=== PATIENT | female | born 1940 | race Caucasian/White ===

== ENCOUNTER → 2017-06-24 | Outpatient (CLI) | payer OTHER ==
[~2017-06-24] VITALS: Ht 157.5 cm; Wt 58.1 kg
[~2017-06-24] MED LIST: CENTRUM SILVER1 EAC4 PO; FISH OIL 1,001000 M2 PO; PRESERVISION A1 EAC2 PO
--- NOTE | ~2017-06-24 | S ---
[facility] [address] [place] [facility] [place] [address] SURGICAL PATH RPT PROCEDURE Name: CARMENCITA NOVAK Room #: REG JOSIAS Estela#: [id number] Admission: 06/24/17 Date of : 44 Discharge: Report #: [id number] Path Case #: [id number] PATHOLOGY REPORT COLLECTION DATE: 06/24/2017 RECEIVED DATE: 06/24/2017 SUBMITTING PHYS: Dr. Cameron Carias OTHER PHYS: Dr. Arvind Oliveira SPECIMEN(S) RECEIVED: A.Hepatic flexure polyp B.Rectal polyp * * * * * * * * * * * * FINAL DIAGNOSIS: A. "Hepatic flexure polyp", biopsy: - Tubular adenoma; no high-grade dysplasia. B. "Rectal polyp", biopsy: - Tubular adenoma; no high-grade dysplasia. (CLW:ami; 06/26/2017) PATHOLOGIST: Sybil Ibarra M.D. REPORT ELECTRONICALLY SIGNED BY: Sybil Ibarra M.D. DATE/TIME: 06/26/2017 15:11 * * * * * * * * * * * * GROSS PATHOLOGY: A. Received in formalin labeled "Carmencita Novak, polyp at hepatic flexure," is a segment of parker soft tissue measuring 0.6 x 0.2 x 0.2 cm in maximum dimension. The specimen is submitted entirely in cassette A1. B. Received in formalin labeled "Carmencita Novak Y, polyp at rectum," is a segment of parker soft tissue measuring 0.4 x 0.3 x 0.3 cm in maximum dimension. The specimen is submitted entirely in cassette B1. (MIRZA; 06/25/2017) CLINICAL HISTORY: Colon cancer screening, colon polyps INITIAL CPT CODE(S): A; 51954 B; 79753 Professional services performed by [facility] at [address] [address] SURGICAL PATH RPT PROCEDURE Name: CARMENCITA NOVAK Room #: REG CL Bowen#: [id number] Admission: 06/24/17 Date of : 44 Discharge: Report #: [id number] Path Case #: [id number] [address] [facility] , [place] [address] Technical services performed by [facility] at [address] [place] [address], [facility] [address] [address]. [place] [address] PHONE: [phone] DIRECTOR: Yunior Otero M.D. * * * END OF REPORT * * *
--- NOTE | ~2017-06-24 | P ---
[facility] [place] [address] PROCEDURE REPORT Name: CHEY NASH Room #: REG [facility]#: [id number] Admission: 06/24/17 Attend Phys: Cameron Carias MD Discharge: Date of : 44 Report #: [id number] THIS REPORT FOR: //name// CC: Arvind Carias DATE OF SERVICE: 06/24/2017 DATE OF SERVICE: 06/24/2017 BRIEF HISTORY: The patient is a 76-year-old woman for average risk screening colonoscopy. PREOPERATIVE DIAGNOSIS: Average risk screening colonoscopy. POSTOPERATIVE DIAGNOSES: Colon polyps. MEDICATIONS: Deep sedation with propofol per anesthesia. SPECIMEN: 1. Diminutive hepatic flexure polyp. 2. A 5-mm rectal polyp. ESTIMATED BLOOD LOSS: 3 mL. PROCEDURE: Colonoscopy to cecum and terminal ileum with snare polypectomy and biopsy. FINDINGS: Prior to propofol sedation, procedure of colonoscopy discussed with the patient as well as potential risks and its complications. She indicates she understands and desires to proceed. DESCRIPTION OF PROCEDURE: With the patient in the left lateral decubitus position, digital examination was completed which revealed no abnormalities. Subsequently, the [employer] video colonoscope was introduced into the rectum and advanced under direct vision to the cecum, done with minimal difficulty. The cecum was identified by the ileocecal valve and the appendiceal orifice. I was able to visualize the distal segment of the terminal ileum, which was inspected and noted to be unremarkable. At that point, the scope was slowly withdrawn and careful circumferential views obtained including retroflexing the scope in the ascending colon. As we withdrew the scope, the prep was noted to be excellent. The mucosa was within normal limits, normal vascular pattern, normal light reflex. No abnormalities were noted until the hepatic flexure was reached and a diminutive polyp was seen and removed with biopsy forceps. Scope was further withdrawn and no additional abnormalities were noted until the rectum was [facility] [address] [place] [address] PROCEDURE REPORT Name: CHEY NASH Room #: [facility]#: [id number] Admission: 06/24/17 Attend Phys: Cameron Carias MD Discharge: Date of : 44 Report #: [id number] reached. The remainder of the colonic mucosa was normal until we reached the rectum, at which point a 5-mm sessile polyp was seen and removed by cold snare polypectomy and recovered. Upon retroflexion, no additional abnormalities were seen. Scope was withdrawn. The patient tolerated the procedure well. CONDITION OF THE PATIENT UPON DISCHARGE: Following the procedure, the patient was drowsy, arousable, and conversant and will be discharged to home when fully ambulatory. INSTRUCTIONS TO THE PATIENT AND FAMILY AT THE TIME OF DISCHARGE: Two small polyps identified and removed as described above. We will follow up on the path and make further recommendations as needed. If one or both polyps are adenomas, she should return in 5 years, if neither one is an adenoma, then 10 years would be indicated. She will otherwise return to the care of Dr. Arvind Oliveira and return to see me as needed. Last colonoscopy was 10 years ago. Withdrawal time from the cecum was 12 minutes and 6 seconds. <ELECTRONICALLY SIGNED> By: Cameron Carias MD 06/24/17 [id number] Cameron Carias MD /nt
== END | disposition home or self-care (01) ==
LOC: GI 06:23
DX: Z12.11 Encounter for screening for malignant neoplasm of colon (principal); K63.5 Polyp of colon; K62.1 Rectal polyp; Z98.41 Cataract extraction status, right eye; Z98.42 Cataract extraction status, left eye; Z98.890 Other specified postprocedural states; Z91.040 Latex allergy status
CPT/HCPCS: 62110; 62900